=== PATIENT | male | born 1940 | race Caucasian/White ===

== ENCOUNTER 2017-12-09 11:29 | Outpatient (CLI) | payer MEDICARE ==
[~2017-12-09] VITALS: Ht 180.3 cm; Wt 106.9 kg
--- NOTE | ~2017-12-09 | OP ---
PATIENT NAME: KWABENA RODAS MEDICAL RECORD: [id number] :40 LOCATION:D.M2 D.2116 ADMISSION DATE: SURGEON: RAYA MCLEOD MD DATE OF OPERATION: 12/09/2017 PROCEDURE: Lead portion of permanent pacemaker placement. INDICATION: Sick sinus syndrome with pauses and bradyarrhythmias. SURGEON: Sarthak Gama MD DESCRIPTION OF PROCEDURE: The left subclavian was cannulated via modified Seldinger technique via Dr. Gama first under fluoroscopic guidance, I placed RV lead in RV apex without difficulty. After adequate thresholds and R waves were obtained, we then placed the right atrial lead in the right atrial appendage without difficulty. After adequate fibrillatory waves were obtained, leads were attached to appropriate poles of the generator and the pocket was closed via Dr. Gama. IMPRESSION: Successful lead portion of permanent pacemaker placement. COMPLICATIONS: None. ESTIMATED BLOOD LOSS: Minimal. DISPOSITION: To the floor, stable. TRANSINT:[id number] Voice Confirmation ID: [id number] DOCUMENT ID: [id number] RAYA MCLEOD MD at 0826 CC: [id number] DICTATION DATE: 12/09/17 1450 CHEMICAL APPLICATOR: 12/09/17 1524 [facility] [address] [id number]
--- NOTE | ~2017-12-09 | OP ---
PATIENT NAME: KWABENA RODAS MEDICAL RECORD: [id number] :40 LOCATION:D.CAT ADMISSION DATE: SURGEON: ERNESTINE CALDWELL MD DATE OF OPERATION: 12/09/2017 PREOPERATIVE DIAGNOSES: 1. Sick sinus syndrome. 2. Coronary artery disease. 3. Hypertension. 4. Hyperlipidemia. POSTOPERATIVE DIAGNOSES: 1. Sick sinus syndrome. 2. Coronary artery disease. 3. Hypertension. 4. Hyperlipidemia. PROCEDURE: 1. Dual lead left subclavian vein pacemaker placement. 2. Fluoroscopic interpretation. SURGEON: Ernestine Caldwell MD REPORT OF PROCEDURE: The patient's left chest was prepped and draped in sterile fashion. A 20 mL of 1% lidocaine with epinephrine was infused into the surrounding tissues. A transverse incision was made over the superior lateral aspect of the left chest and a subcutaneous pouch was made over the pectoral fascia. The left subclavian vein was accessed with 2 separate sticks and guidewires were advanced with ease. Fluoro was used to note that the wires were in good position in the venous system. The dilator trocar devices were placed over the wires and the wires and dilators were removed. The 2 leads were then inserted in the venous system. At this point, Dr. Key positioned the leads in the atrium and right ventricle. Once these were noted to be functioning appropriately, then the leads were sutured into place with 0 TiCron. The leads were affixed to the pacemaker and the pacemaker was placed in the subcutaneous pouch. This was sutured into place with a single 0 TiCron. We then irrigated out the wound with antibiotic solution. The subcutaneous tissues were reapproximated with interrupted 3-0 Vicryl and the skin was closed with running subcutaneous 5-0 Monocryl. COMPLICATIONS: None. CONDITION: Stable. ANESTHESIA: Local MAC. BLOOD LOSS: Minimal. TRANSINT:[id number] Voice Confirmation ID: [id number] DOCUMENT ID: [id number] OPERATIVE REPORT [id number] RODASKWABENA ERNESTINE CALDWELL MD at 0841 CC: [id number] DICTATION DATE: 12/09/17 1501 FLUID JET CUTTER OPERATOR: 12/09/17 1525 DEP CLI 12/10/17 [place] [address]
--- NOTE | ~2017-12-09 | HEMODYNAMI ---
PATIENT:KWABENA RODAS MEDICAL RECORD: [id number] : 40 LOCATION:D.CAT ADMISSION DATE: 12/09/17 Generatedon:12/09/201715:00 Patient name: KWABENA RODAS Patient #: [id number] SSN: : 1940 Date of study: 12/09/2017 Page: Of Hemodynamic Procedure Report Patient Data Patient Demographics Procedure consent was obtained First Name: KWABENA Gender: Male Last Name: CLARK : 1940 [facility] Initial: LUIS Age: 77 year(s) Patient #: [id number] Race: Unknown Additional ID: [id number] Contact details Address: [address] [address] State: [place] City: [place] Zip code: [address] Past Medical History Allergies: No known allergies Admission Admission Data Admission Date: 12/09/2017 Admission Time: 11:29 Procedure Procedure Types Cath Procedure Diagnostic Procedure PPM/ICD PPM Dual Implant Sedation Charges Moderate Sedation up to 15 minutes Procedure Description Procedure Date Procedure Date: 12/09/2017 Procedure Start Time: 14:31 Procedure End Time: 14:58 Procedure Staff Name Function Dax Diaz MD Performing Physician Sarthak Gama MD Assisting physician Katie Almonte RT Monitor Umm Deleon RT Scrub Biju Padilla RN Nurse Procedure Data Cath Procedure Fluoroscopy Diagnostic fluoroscopy Total fluoroscopy Time: 2.8 time: 2.8 min min Diagnostic fluoroscopy Total fluoroscopy dose: 91 dose: 91 mGy mGy Estimated blood loss: 10 ml Procedure Complications No complications Procedure Medications Medication Administration Route Dosage 0.9% NaCl I.V. 100 ml/hr Oxygen etCO2 Nasal cannula 2 l/min Lidocaine 1% with added to field 20 ml Epi Bupivacaine 0.5% S.Q. 10 ml Ancef Irrigation Topical 1 g (1gm/500ml NS) Ancef (1Gm/50ml NS) I.V.P.B 1 g Versed I.V. 2 mg Fentanyl I.V. 100 mcg Versed I.V. 2 mg Fentanyl I.V. 50 mcg Fentanyl I.V. 50 mcg Hemodynamics Rest Heart Rate: 46 (bpm) Snapshots Pre Cath Intra NCS Post Cath Vital Signs Time Heart Resp SPO2 etCO2 NIBP (mmHg) Rhythm Pain Sedation Rate (ipm) (%) (mmHg) Status Level (bpm) 14:17:06 47 14 100 37.2 171/88(140) NSR 0 (11) 10(A) , No pain 14:21:32 39 13 100 39.4 152/70(125) NSR 0 (11) 10(A) , No pain 14:26:00 48 14 100 39.4 137/79(111) NSR 0 (11) 10(A) , No pain 14:30:22 52 14 99 40.2 144/76(105) NSR 0 (11) 10(A) , No pain 14:34:49 97 18 99 38 137/71(111) NSR 0 (11) 10(A) , No pain 14:39:21 44 18 98 0 147/67(110) NSR 0 (11) 9(A) , No pain 14:43:51 47 18 98 11.1 128/72(100) NSR 0 (11) 9(A) , No pain 14:48:18 52 19 98 2.2 134/68(92) NSR 0 (11) 9(A) , No pain 14:53:35 63 19 92 40.9 136/76(107) NSR 0 (11) 9(A) , No pain 14:58:00 56 9 98 44.6 131/76(109) NSR 0 (11) 9(A) , No pain Medications Time Medication Route Dose Verified Delivered Reason Notes Effectiv eness by by 14:16:06 0.9% NaCl I.V. 100 Biju Biju Per ml/hr Valerie Padilal physician RN RN 14:16:21 Oxygen etCO2 2 Biju Biju Per Nasal l/min Valerie Padilla physician cannula RN RN 14:16:39 Lidocaine added 20 ml Biju Biju for local 1% with Epi to Lorigan Lorigan anesthetic field RN RN 14:17:13 Bupivacaine S.Q. 10 ml Biju Biju for local 0.5% Lorigan Lorigan anesthetic RN RN 14:20:36 Ancef Topical 1 g Biju Biju used for Irrigation Lorigan Lorigan procedure (1gm/500ml RN RN NS) 14:20:56 Ancef I.V.P.B 1 g Biju Biju Per (1Gm/50ml Lorigan Lorigan physician NS) RN RN 14:27:19 Versed I.V. 2 mg Biju Biju for Lorigan Lorigan sedation RN RN 14:27:29 Fentanyl I.V. 100 Biju Biju for mcg Lorigan Lorigan sedation RN RN 14:32:15 Versed I.V. 2 mg Biju Biju for Lorigan Lorigan sedation RN RN 14:35:51 Fentanyl I.V. 50 Biju Biju for mcg Lorigan Lorigan sedation RN RN 14:49:29 Fentanyl I.V. 50 Biju Biju for mcg Lorigan Lorigan sedation RN customer support associate Log Time Note 14:00:57 Biju Padilla RN sent for patient. Start room use. 14:09:04 Time tracking: Regular hours (M-F 7:00 - 5:00) 14:09:07 Plan of Care:Hemodynamics will remain stable., Cardiac rhythm will remain stable., Comfort level will be maintained., Respiratory function will remain adequate., Patient/ family verbilizes understanding of procedure., Procedure tolerated without complication., Recovers from procedure without complications.. 14:09:13 Patient received from Pre/Post Procedure Room to CCL 3 Alert and oriented. Tansferred to table in Supine position. 14:09:14 Warm blankets applied, and wilfredo hugger turned on for patient comfort. 14:09:14 Correct patient and procedure confirmed by team. 14:09:15 Signed procedure consent form obtained from patient. 14:09:16 ECG and BP/O2 sat monitors applied to patient. 14:09:17 Full Disclosure recording started 14:09:23 Use device set JAVI PPM 14:09:25 2-0 Ticron Multipack ([id number]) opened to sterile field. 14:09:26 3-0 Vicryl Single Pack [id number] opened to sterile field. 14:09:27 5-0 Monocryl PS2 [id number] opened to sterile field. 14:09:30 Cautery Tip Spiritual Counselor opened to sterile field. 14:09:30 Cautery Pushbutton Pencil opened to sterile field. 14:09:31 Mepilex Dressing ([id number]) opened to sterile field. 14:09:34 Immobilizer Large opened to sterile field. 14:09:53 Rhythm: atrial fibrillation 14:10:13 H&P Date Dictated: 12/03/2017 Within 30 days and on chart., H&P Addendum completed by physician on day of procedure. (MUST COMPLETE FOR ALL OUTPATIENTS). 14:10:14 Pre-procedure instructions explained to patient. 14:10:14 Pre-op teaching completed and patient verbalized understanding. 14:10:15 Family in waiting room. 14:10:18 Vital chart was started 14:13:50 Medtronic Advisa MRI PPM Dual Generator [id number] opened to sterile field. 14:16:06 0.9% NaCl 100 ml/hr I.V. was administered by Biju Padilla RN; Per physician; 14:16:21 Oxygen 2 l/min etCO2 Nasal cannula was administered by Biju Padilla RN; Per physician; 14:16:39 Lidocaine 1% with Epi 20 ml added to field was administered by Biju Padilla RN; for local anesthetic; 14:17:13 Bupivacaine 0.5% 10 ml S.Q. was administered by Biju Padilla RN; for local anesthetic; 14:19:03 Medtronic 4574-45 PPM Lead opened to sterile field. 14:19:58 Medtronic 4074-52 PPM Lead opened to sterile field. 14:20:36 Ancef Irrigation (1gm/500ml NS) 1 g Topical was administered by Biju Padilla RN; used for procedure; 14:20:56 Ancef (1Gm/50ml NS) 1 g I.V.P.B was administered by Biju Padilla RN; Per physician; 14:21:00 Patient allergic to No known allergies 14:21:02 Is patient on blood thinner?Yes 14:21:05 ACC The patient was administered the following blood thiners within the last 24 hours: ACCPlavix 14:21:06 If diabetic: On Metformin? No 14:21:09 Previous problem with sedation/anesthesia? No ? 14:21:10 Snore? No 14:21:11 Sleep apnea? No 14:21:12 Deviated septum? No 14:21:13 Opens mouth fully? Yes 14:21:14 Sticks out tongue? Yes 14:21:15 Airway obstruction? No ? 14:21:17 Dentures? No ? 14:21:20 Patient pain scale 0/10 ?. 14:21:33 IV patent on arrival in left forearm with 0.9% NaCl at [facility]. 14:22:30 Left chest area was prepped with chlora-prep and draped in sterile fashion 14:22:30 Alarms reviewed by R. N. 14::31 Sharps counted by scrub and verified by R.N. 14::42 Medtronic canvas products sales representative LINDA VUONG\ present for procedure. 14:23:02 Pre sharps counted by scrub and verified by RN: Sutures: 15; Sponges: 5; Stick needles: 2; Skin needles: 2; Blade: 1; Cautery: 1 14:23:05 Grounding pad site Left thigh. 14:23:06 Grounding pad site free from injury. 14::26 --------ALL STOP TIME OUT------ 14:: Final Timeout: patient, procedure, and site verified with staff and physician. All members of the team are in agreement. 14:23:31 Left chest site verified by team. 14:23:35 Physical assessment completed. ASA score P 2 - A patient with mild systemic disease as per Dax Diaz MD. 14:23:39 Sedation plan: IV Moderate Sedation Medication:Versed, Fentanyl 14:25:20 Baseline sample Acquired. 14:27:19 Versed 2 mg I.V. was administered by Biju Padilla RN; for sedation; 14:27:29 Fentanyl 100 mcg I.V. was administered by Biju Padilla RN; for sedation; 14:31:28 Procedure started. 14:31:51 Lidocaine 1% w/epi and Bupivacaine 0.5% was administered to left subclavicular area by Sarthak Gama MD . 14:32:15 Versed 2 mg I.V. was administered by Biju Padilla RN; for sedation; 14:33:30 Incision made to left subclavicular area. 14:35:45 Generator pocket made/opened. 14:35:51 Fentanyl 50 mcg I.V. was administered by Biju Padilla RN; for sedation; 14:36:23 Left subclavian vein accessed with 7Fr Peel Away Sheath. 14:37:47 Ventricular lead inserted and advanced. 14:38:13 Left subclavian vein accessed with 7Fr Peel Away Sheath. 14:41:21 Atrial lead inserted and advanced. 14:42:06 Ventricular lead positioned. 14:42:37 Ventricular lead tested. 14:43:48 Atrial lead positioned. 14:44:42 Atrial lead tested. 14:45:42 Peel-a-way sheath was split and removed. 14:46:41 Peel-a-way sheath was split and removed. 14:47:10 PPM Dual was attached to lead(s) and inserted into pocket. 14:47:57 Parameters-- Generator: Mode: DDIR. Lower Rate: 60bpm. Upper Rate: 120bpm. 14:48:07 PPM Dual was inserted subcutaneously to left chest. 14:48:14 Device pocket was irrigated with Ancef. 14:49:29 Fentanyl 50 mcg I.V. was administered by Biju Padilla RN; for sedation; 14:50:22 Atrial lead attachment was completed with 2-0 ticron. 14:50:25 Ventricular lead attachment was completed with 2-0 ticron. 14:50:29 Subcutaneous closure was completed with 3-0 vicryl. 14:50:37 Skin closure was completed with 5-0 monocryl. 14:51:51 Parameters--Atrial P/R Wave: .8mV. Current: 0mA; Threshold: 0V; Impedence: 679OHMS. 14:52:34 Parameters--Atrial P/R Wave: 10.9mV. Current: .4mA; Threshold: .7V; Impedence: 2100OHMS. 14:53:03 Post sharps counted by scrub and verified by RN: Sutures: 15; Sponges: 5; Stick needles: 2; Skin needles: 2; Blade: 1; Cautery: 1 14:55:09 Lt Chest incision was dressed with Mepilex dressing. 14:55:13 Procedure ended.(Physican Out) 14:56:44 Fluoroscopy time 02.80 minutes. 14:56:48 Fluoroscopy dose: 91 mGy 14:56:48 Flurop Dose total: 91 14:56:49 Sharps counted by scrub and verified by R.N. 14:56:51 Insertion/operative site no bleeding no hematoma. 14:56:59 Post procedure rhythm: paced 14:57:01 Estimated blood loss: 10 ml 14:57:02 Post procedure instruction explained to patient.Patient verbalizes understanding. 14:57:02 Patient needs reinforcement of post procedure teaching. 14:57:43 Procedure type changed to Cath procedure, Diagnostic procedure, PPM/ICD, PPM Dual Implant, Sedation Charges, Moderate Sedation up to 15 minutes 14:58:02 Procedure and supply charges have been captured, reviewed, submitted and are correct. 14:58:05 Procedure Complication : No complications 14:58:07 Vital chart was stopped 14:58:07 See physician's report for complete and final results. 14:58:09 Report given to PCU. 14:58:11 Patient transfered to PCU with Bed. 14:58:13 Procedure ended. 14:58:13 Full Disclosure recording stopped 14:58:18 End room use (Document Last) Device Usage Item Name Manufacture Quantity Catalog Hospital Part Current Minimal Lot# / Serial# Number Charge Number Stock Stock Code 2-0 Ticron Ethicon 1 [id number] 89218 [id number] 5 Multipack ([id number]) 3-0 Vicryl Ethicon 1 [id number] [id number] [id number] 5 Single Pack [id number] 5-0 Monocryl Ethicon 1 Y495G 014317 279605 719598 5 PS2 Y495G Cautery Tip Microtek 1 [id number] 292250 925187 208455 5 [employer] Cautery Microtek 1 [id number] 40391 [id number] 5 Push[employer] Pencil Mepilex Cardinal 1 [id number] 979062 125781 426782 5 ([id number]) Immobilizer Cardinal 1 [id number] 647060 117624 5 [facility] Medtronic Medtronic 1 [id number] [id number] 5 [id number] Advisa MRI EXP# PPM Dual Generator [id number] Medtronic Medtronic 1 4574-45 [id number] [id number] 5 EXP# [id number] PPM [id number] Lead Medtronic Medtronic 1 4074-52 [id number] [id number] 5 EXP# [id number] PPM Lead [id number] Signature Audit [place] Stage Time Signature Unsigned Intra-Procedure 12/09/2017 Katie Almonte 3:00:31 PM RT(R) Signatures Monitor : Katie Almonte Signature : RT Date : Time : [address] [place] [address]
[2017-12-09] MEDS ORDERED: PLAVIX75 MG PO (11:47)
[2017-12-09] MEDS ORDERED: HYZAAR 50-12.51 TAB PO (11:50)
[2017-12-09] MEDS ORDERED: ZOCOR40 MG PO (11:51)
[2017-12-09] MEDS ORDERED: ULTRAM50 MG PO (11:51)
[2017-12-09] MEDS ORDERED: XALATAN 0.0052.5 ML EACH EYE (11:52)
[2017-12-09] MEDS ORDERED: COSOPT EYE DROPS5 ML EACH EYE (11:52)
[2017-12-09 12:02] VITALS: BP 160/78; BMI 32.0
[2017-12-09 12:17] LABS: HEMATOCRIT 43.4 % (42.0-54.0); HEMOGLOBIN 14.9 g/dL (13.5-17.5); MCH 32.5 pg (26.0-34.0); MCHC 34.3 g/dL (31.0-37.0); MCV 94.6 fL (80.0-100.0); MEAN PLATELET VOLUME 10.1 fL (7.4-10.4); RBC 4.59 10x6/uL (4.20-6.10); RDW 12.9 % (11.5-14.5); WBC 8.6 10x3/uL (4.8-10.8)
[2017-12-09 12:20] LABS: INR 1.03 (0.85-1.17); PROTIME 13.1 SECONDS (11.6-15.0)
[2017-12-09 12:21] LABS: APTT 27.5 SECONDS (22.8-39.4)
[2017-12-09 12:23] LABS: ANION GAP 9.2 mmol/L (8-16); CARBON DIOXIDE 25.5 mmol/L (21.0-32.0); CREATININE - SERUM 1.1 mg/dL (0.6-1.3); POTASSIUM - SERUM 3.7 mmol/L (3.5-5.1)
[2017-12-09 17:01] VITALS: BP 122/67
[2017-12-09 18:35] VITALS: BP 131/76; Ht 180.3 cm; Wt 106.9 kg
[2017-12-09 20:00] VITALS: BP 151/83
[2017-12-10] VITALS: BP 130/77
[2017-12-10 04:00] VITALS: BP 122/71
== END 2017-12-10 10:05 | disposition home or self-care (01) ==
LOC: D.CATH 11:29 → D.M2 15:26 → D.CATH 12-10 10:05
PROVIDERS: Internal Medicine Interventional Cardiology
DX: I49.5 Sick sinus syndrome (principal); R00.1 Bradycardia, unspecified; I10 Essential (primary) hypertension; I25.10 Atherosclerotic heart disease of native coronary artery without angina pectoris; E78.5 Hyperlipidemia, unspecified; Z01.812 Encounter for preprocedural laboratory examination